=== PATIENT | female | born 2000 | race African-American/Black ===

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

== ENCOUNTER 2020-01-02 05:33 | Outpatient (CLI) | payer OTHER ==
[~2020-01-02] VITALS: Ht 172.7 cm; Wt 88.0 kg
[2020-01-02 05:52] VITALS: BP 120/75
[2020-01-02 06:20] LABS: MICROSCOPIC INDICATED
[2020-01-02] MEDS ORDERED: NITR100C56 PO (08:01)
== END 2020-01-02 23:59 | disposition home or self-care (01) ==
LOC: LDOP 05:33
PROVIDERS: ATTEND Obstetrics & Gynecology
DX: O26.893 Other specified pregnancy related conditions, third trimester (principal); R25.2 Cramp and spasm; Z3A.34 34 weeks gestation of pregnancy
CPT/HCPCS: 59025; 81001; 87086; 99211; G0463

== ENCOUNTER 2020-01-11 07:10 | Outpatient (CLI) | payer OTHER ==
[~2020-01-11] VITALS: Ht 172.7 cm; Wt 88.1 kg
[~2020-01-11 07:10] MED LIST changes: +NITR100C56 PO
[2020-01-11 07:24] VITALS: BP 122/61
== END 2020-01-11 08:08 | disposition home or self-care (01) ==
LOC: LDOP 07:10
PROVIDERS: ATTEND Obstetrics & Gynecology
DX: O26.893 Other specified pregnancy related conditions, third trimester (principal); R10.9 Unspecified abdominal pain; Z3A.36 36 weeks gestation of pregnancy
CPT/HCPCS: 59025; 99211; G0463

== ENCOUNTER → 2020-01-18 | Outpatient (CLI) | payer OTHER ==
[~2020-01-18] VITALS: Ht 172.7 cm; Wt 88.6 kg
[2020-01-18 12:45] VITALS: BP 104/62
== END | disposition home or self-care (01) ==
LOC: LDOP 12:36
PROVIDERS: ATTEND Obstetrics & Gynecology
DX: O26.893 Other specified pregnancy related conditions, third trimester (principal); R10.9 Unspecified abdominal pain; Z3A.37 37 weeks gestation of pregnancy
CPT/HCPCS: 59025; 84112; 99211; G0463

== ENCOUNTER → 2021-01-23 | Outpatient (CLI) | payer OTHER, MEDICAID | END | disposition home or self-care (01) | LOC: LAB 16:39 | PROVIDERS: ATTEND Obstetrics & Gynecology | DX: N91.2 Amenorrhea, unspecified (principal) | CPT/HCPCS: 36415; 84702 ==